=== PATIENT | female | born 1985 | race Caucasian/White ===

== ENCOUNTER 2022-06-30 21:04 | Emergency (ER) | payer BC, MEDICAID ==
[~2022-06-30] VITALS: Ht 160 cm; Wt 72.6 kg
[2022-06-30 21:10] VITALS: BP 138/87
--- NOTE | 2022-06-30 21:15 | NUR ---
[facility]
[2022-06-30] MEDS ORDERED: CEPH-588 PO ×2 (22:18→22:53)
[2022-06-30] MEDS ORDERED: PHEN-1877 PO ×2 (22:18→22:53)
[2022-06-30 22:21] LABS: BILIRUBIN,URINE NEGATIVE (NEGATIVE); BLOOD, URINE 3+ (NEGATIVE); LEUKOCYTE ESTERASE ,URINE 3+ (NEGATIVE); NITRITE, URINE NEGATIVE (NEGATIVE); UGLUCOSE NEGATIVE (NEGATIVE)
[2022-06-30 22:23] LABS: APPEARANCE,URINE HAZY (CLEAR); COLOR,URINE STRAW (YELLOW)
[2022-06-30 22:46] LABS: RBC,URINE 0-5 /HPF (0-5)
[2022-06-30 22:53] VITALS: BP 138/87
--- NOTE | 2022-06-30 22:53 | NUR ---
Patient discharged with v/s stable. Written and verbal after care instructions given and explained. Patient alert, oriented and verbalized understanding of instructions. Ambulatory with steady gait. All questions addressed prior to discharge. ID band removed. Patient advised to follow up with PMD. Rx of keflex and pyridium given. Patient educated on indication of medication including possible reaction and side effects. Opportunity to ask questions provided and answered.
== END 2022-06-30 22:53 | disposition home or self-care (01) ==
LOC: MED 21:04
DX: N39.0 Urinary tract infection, site not specified (principal); Z79.899 Other long term (current) drug therapy
CPT/HCPCS: 81001; 81025; 87086; 99283